=== PATIENT | female | born 1965 | race Caucasian/White ===

== ENCOUNTER → 2020-02-29 10:03 | Outpatient (CLI) | payer OTHER, SELFPAY ==
--- NOTE | ~2020-02-29 | XR_ITS ---
XR chest 2V DATE: 02/29/2020 10:21 INDICATION: Long-term tobacco use. Smoker. History of bronchitis. TECHNIQUE: PA and lateral views COMPARISON: 09/11/2018 PA and lateral chest FINDINGS: Bilateral hyperinflation. No pulmonary infiltrate or consolidation or pulmonary mass lesion is evident. No hilar or mediastinal enlargement. Normal heart size. No pulmonary vascular congestion, pleural effusion or pneumothorax. Included skeletal structures are unremarkable. IMPRESSION: Bilateral hyperinflation; no active cardiopulmonary disease or significant change since Reviewed, dictated and finalized at location B. [employer] IMPRESSION: Bilateral hyperinflation; no active cardiopulmonary disease or sign ificant change since 09/11/2018
== END ==
PROVIDERS: PCP Emergency Medicine; Visit Provider Emergency Medicine
DX: Z72.0 Tobacco use (principal)
CPT/HCPCS: 71046

== ENCOUNTER → 2020-05-23 10:50 | Outpatient (CLI) | payer OTHER, SELFPAY ==
--- NOTE | ~2020-05-23 | XR_ITS ---
XR hand RT min 3V 05/23/2020 11:22 INDICATION: Right hand pain PROCEDURE: 3 views right hand COMPARISON: 03/09/2018 FINDINGS: Fracture, dislocation or subluxation is not identified. The soft tissues appear within norm al limits. No foreign bodies are identified. IMPRESSION: 1: NO ACUTE BONE OR JOINT ABNORMALITY IDENTIFIED. Reviewed, dictated and finalized at location B.
== END ==
PROVIDERS: PCP Emergency Medicine; Visit Provider Emergency Medicine
DX: M79.641 Pain in right hand (principal)
CPT/HCPCS: 73130